=== PATIENT | male | born 1980 | race Caucasian/White ===

== ENCOUNTER 2018-01-25 16:04 | Emergency (ER) | payer OTHER ==
[~2018-01-25] VITALS: Ht 162.6 cm; Wt 72.6 kg
[2018-01-25 16:10] VITALS: Ht 162.6 cm; Wt 72.6 kg
[2018-01-25 17:02] VITALS: BP 162/99
== END 2018-01-25 17:02 | disposition other institution (70) ==
LOC: ED 16:04
DX: Z02.89 Encounter for other administrative examinations (principal)